=== PATIENT | male | born 1990 | race Caucasian/White ===

== ENCOUNTER 2021-06-15 16:36 | Emergency (ER) | payer SELFPAY ==
[2021-06-15 17:08] VITALS: BP 148/83; PULSE 61
[2021-06-15] MEDS ORDERED: Bacitracin Oint 1 GM U/D Packet TOP ONE (17:18)
--- NOTE | 2021-06-15 18:36 | EDM.PDOC ---
ED HPI GENERAL MEDICAL PROBLEM - General Chief Complaint: Laceration Stated Complaint: CUT FINGERS Time Seen by Provider: 06/15/21 17:18 - History of Present Illness INITIAL COMMENTS - FREE TEXT/NARRATIVE: 30-year-old gentleman presents emergency department day with a laceration to his left hand he injured himself with a utility knife while cutting sheet rock, he states his tetanus is up-to-date no functional complaints Left Finger-Thumb Pain Score (Numeric/FACES): 6 - Related Data Allergies Allergy/AdvReac Type Severity Reaction Status Date / Time No Known Allergies Allergy Verified 06/15/21 17:16 Home Meds: Home Meds NK [No Known Home Meds] 03/24/16 [History] Past Medical History - Past Health History Medical/Surgical History: Denies Medical/Surgical History - Infectious Disease History Infectious Disease History: Reports: Chicken Pox Social & Family History - Tobacco Use Tobacco Use Status *Q: Never Tobacco User - Caffeine Use Caffeine Use: Reports: Coffee - Recreational Drug Use Recreational Drug Use: No ED ROS GENERAL - Review of Systems Review Of Systems: See Below Skin: Reports: Wound ED EXAM, SKIN/RASH Exam: See Below Text/Narrative:: Examination of the left hand he does have a laceration distal tip digit #1 distal tip digit #2 completely through the dermis no functional complaints radial pulses +2 sensation is intact Exam Limited By: No Limitations General Appearance: Alert, WD/WN, No Apparent Distress ED SKIN PROCEDURES - Laceration/Wound Repair Left Digit - 1st (Thumb) Appearance: Subcutaneous, Linear Distal NVT: Neuro & Vascular Intact, No Tendon Injury Anesthetic Type: Digital Local Anesthesia - Lidocaine (Xylocaine): 1% Plain Local Anesthetic Volume: 2cc Skin Prep: Saline Saline Irrigation (cc's): 60 Exploration/Debridement/Repair: Wound Explored, In a Bloodless Field, Explored to Base Closed with: Sutures Lac/Wound length In cm: 3 Suture Size: 4-0 # of Sutures: 5 Suture Type: Interrupted Sterile Dressing Applied: Nurse Tetanus Status Addressed: Yes Complications: No Left Digit - 2nd (Index) Appearance: Subcutaneous, Linear Distal NVT: Neuro & Vascular Intact, No Tendon Injury Anesthetic Type: Digital Local Anesthesia - Lidocaine (Xylocaine): 1% Plain Local Anesthetic Volume: 2cc Skin Prep: Saline Saline Irrigation (cc's): 60 Exploration/Debridement/Repair: Wound Explored, In a Bloodless Field, Explored to Base Closed with: Sutures Lac/Wound length In cm: 3 # of Sutures: 5 Suture Type: Nylon, Interrupted Sterile Dressing Applied: Nurse Tetanus Status Addressed: Yes Complications: Yes Course - Vital Signs Last Recorded V/S: Last Vital Signs Temp 98.1 F 06/15/21 17:16 Pulse 61 06/15/21 17:16 Resp 16 06/15/21 17:16 BP 148/83 H 06/15/21 17:16 Pulse Ox 99 06/15/21 17:16 - Orders/Labs/Meds Meds: Medications Discontinued Medications Generic Name Dose Route Start Last Admin Trade Name Freq PRN Reason Stop Dose Admin Bacitracin 1 dose 06/15/21 17:18 Bacitracin Oint 1 Gm U/D Packet TOP 06/15/21 17:19 ONETIME ONE Lidocaine HCl 5 ml 06/15/21 17:18 Lidocaine 1% 5 Ml Sdv INJECT 06/15/21 17:19 ONETIME ONE Lidocaine HCl 5 ml 06/15/21 18:15 Lidocaine 1% 5 Ml Sdv INJECT 06/15/21 18:16 ONETIME ONE Departure - Departure Time of Disposition: 18:35 Disposition: Home, Self-Care 01 Condition: Fair Clinical Impression: Laceration of left thumb Qualifiers: Encounter type: initial encounter Damage to nail status: without damage Foreign body presence: without foreign body Qualified Code(s): S61.012A - Laceration without foreign body of left thumb without damage to nail, initial encounter Laceration of left index finger Qualifiers: Encounter type: initial encounter Damage to nail status: without damage Foreign body presence: without foreign body Qualified Code(s): S61.211A - Laceration without foreign body of left index finger without damage to nail, initial encounter - Discharge Information Instructions: Laceration Care, Adult Referrals: PCP,None [Primary Care Provider] - Additional Instructions: Follow wound care instruction sheet, suture removal in 10 days, follow-up with primary care or return to the emergency department for suture removal Sepsis Event Note (ED) - Evaluation Sepsis Screening Result: No Definite Risk - Focused Exam Vital Signs: Vital Signs Temp Pulse Resp BP Pulse Ox 06/15/21 17:16 98.1 F 61 16 148/83 H 99 06/15/21 17:07 98.1 F 61 16 148/83 H 99 - Assessment/Plan Plan: Assessment Acuity = acute Site and laterality = lacerations digits 1 and 2 Etiology = secondary to utility knife Manifestations = none Location of injury = work Lab values = none Plan Suture removal in 10 days, follow-up primary care return to the emergency department for suture removal This note was dictated using [employer] voice recognition software please call with any questions on syntax or grammar.
== END 2021-06-15 19:10 | disposition home or self-care (01) ==
LOC: JP.ED 16:36
DX: S61.012A Laceration without foreign body of left thumb without damage to nail, initial encounter (principal); S61.211A Laceration without foreign body of left index finger without damage to nail, initial encounter; W25.XXXA Contact with sharp glass, initial encounter
CPT/HCPCS: 12002; 99282-25